=== PATIENT | female | born 1995 | race Caucasian/White ===

== ENCOUNTER 2017-06-17 20:03 | Emergency (ER) | payer OTHER, MEDICAID ==
[~2017-06-17] VITALS: Ht 165.1 cm; Wt 72.1 kg
[~2017-06-17 20:03] MED LIST: FLINTSTONES COM1 CTB PO; IRON; IRON TABLETS325 MG PO; MOTRIN 400MG.400 MG PO; NOMEDS *; PRENATAL PLUS1 TA1 PO
--- OUTSIDE RECORDS SUMMARY | 2017-06-17 20:13 | External Medical Summary Rpt | CCD ---
Author Author , LUIS MIGUEL BOLANOS Address Unknown Phone [email or web address] Purpose Continuity of Care Document - 02-05-2014 through 2016 Problems Code Diagnosis DOS Provider Status O20.0 THREATENED O20.9 HEMORRHAGE IN EARLY , UNSPECIFIED Z33.1 STATE, INCIDENTAL Z34.90 ENCNTR FOR SUPRVSN OF NORMAL , UNSP, UNSP TRIMESTER Results Labs Lab Lab Date Result Refere Interp Status Commen Order Detail nces retati t Range on CHLAMYDIA AND GONORRHEA TESTING (02-05-2014 09:45) It Infrastructure Specialist: Bibi Paul MD FCAP Lab: [facility] Division of Laboratory Services Lab Address: [address] [place] [address], [address] [place] [id number] 02-05-2014 9:45 am Specimen Collection Start Date/Time: Protohistorian: Specimen Luis Alfredo'marylu 02-07-2014 9:16 am Date/Time: Ordering Physician: [facility] 02-08-2014 9:08 am Results Rpt/Status Change Date/Time: This report contains patient information that must be protected in accordance with the Health Insurance Portability and Accountability Act. AMPLIFI NEGATIV complet ED N 014 E ed GONORRH 09:45 OEAE TEST Comment: NEGATIVE RESULT= WITHIN NORMAL LIMITS Comment: POSITIVE RESULT= ABNORMAL Comment: EQUIVOCAL RESULT= INDETERMINATE Comment: UNSATISFACTORY RESULT= INVALID Comment: THE APTIMA COMBO 2 ASSAY IS NOT INTENDED FOR THE EVALUATION OF SUSPECTED Comment: SEXUAL ABUSE OR FOR OTHER MEDICO-LEGAL INDICATIONS. FOR THOSE PATIENTS FOR Comment: WHOM A FALSE POSITIVE RESULT MAY HAVE ADVERSE PSYCHO-SOCIAL IMPACT, THE CDC Comment: RECOMMENDS RETESTING. Comment: \E\.br\E\This report contains patient information that must be protected in accordance with the Health Insurance Portability and Accountability Act. AMPLIFI NEGATIV complet ED 014 E ed CHLAMYD 09:45 IA TEST Comment: NEGATIVE RESULT= WITHIN NORMAL LIMITS Comment: POSITIVE RESULT= ABNORMAL Comment: EQUIVOCAL RESULT= INDETERMINATE Comment: UNSATISFACTORY RESULT= INVALID CHART NA complet NUMBER 014 ed 09:45 PREGNAN 02-05- NO complet T 014 ed 09:45 SPECIME URINE complet N 014 ed SOURCE 09:45 REASON INITIAL complet FOR 014 FAMILY ed REQUEST 09:45 PLANNIN G VISIT SYMPTOM NO complet S 014 ed 09:45 KIT 02-05-2 04-30-14 complet EXPIRAT 014 ed ION 09:45 DATE ETHNICI WHITE, complet TY 014 NON-HIS ed 09:45 PANIC COLLECT PT/ T. complet OR 014 BRANDEN ed 09:45 RN CHLAMYDIA AND GONORRHEA TESTING (02-05-2014 09:45) Chlamyd NEGATIV complet ia 014 E ed trachom 09:45 atis rRNA [Presen ce] in Unspeci fied specime n by Probe & target amplifi cation method Neisser NEGATIV complet ia 014 E ed gonorrh 09:45 oeae rRNA [Presen ce] in Unspeci fied specime n by Probe & target amplifi cation method CHLAMYDIA AND GONORRHEA TESTING (02-05-2014 09:45) COLLECT PT/ T. complet OR 014 BRANDEN ed 09:45 RN ETHNICI WHITE, complet TY 014 NON-HIS ed 09:45 PANIC KIT 02-05-2 04-30-14 complet EXPIRAT 014 ed ION 09:45 DATE SYMPTOM NO complet S 014 ed 09:45 REASON INITIAL complet FOR 014 FAMILY ed REQUEST 09:45 PLANNIN G VISIT SPECIME URINE complet N 014 ed SOURCE 09:45 PREGNAN 02-05- NO complet T 014 ed 09:45 CHART NA complet NUMBER 014 ed 09:45 Chlamyd Pending complet ia 014 ed trachom 09:45 atis rRNA [Presen ce] in Unspeci fied specime n by Probe & target amplifi cation method Neisser Pending complet ia 014 ed gonorrh 09:45 oeae rRNA [Presen ce] in Unspeci fied specime n by Probe & target amplifi cation method
--- OUTSIDE RECORDS SUMMARY | 2017-06-17 20:13 | External Medical Summary Rpt | CCD ---
Author Author [employer] Organization [employer] Address Unknown Phone Unavailable Purpose Continuity of Care Document - through 2016
--- OUTSIDE RECORDS SUMMARY | 2017-06-17 20:13 | External Medical Summary Rpt | CCD ---
Author Author , LUIS MIGUEL ADAMEMARLYS Address Unknown Phone [email or web address] Immunization Name Date Rout CVX Reac Dose Comm Prov Is Faci e tion ent ider Refu lity Give sed n Tdap 05-1 115 999 Hist H149 No H149 , 1-20 oric Adso 07 al rbed Info rmat ion - Sour ce Unsp ecif ied Vari 05-1 21 999 Hist H149 No H149 cell 1-20 oric a 07 al Info rmat ion - Sour ce Unsp ecif ied MMR 03-0 3 999 Hist H149 No H149 1-20 oric 00 al Info rmat ion - Sour ce Unsp ecif ied Olegario 03-0 2 999 Hist H149 No H149 o-OP 1-20 oric V 00 al Info rmat ion - Sour ce Unsp ecif ied DTaP 03-0 107 999 Hist H149 No H149 , UF 1-20 oric 00 al Info rmat ion - Sour ce Unsp ecif ied DTP- 04-2 22 999 Hist H149 No H149 Hib 3-19 oric 97 al Info rmat ion - Sour ce Unsp ecif ied MMR 04-2 3 999 Hist H149 No H149 3-19 oric 97 al Info rmat ion - Sour ce Unsp ecif ied Hep 02-0 8 999 Hist H149 No H149 B, 3-19 oric ped/ 97 al adol Info rmat ion - Sour ce Unsp ecif ied DTP- 02-0 22 999 Hist H149 No H149 Hib 3-19 oric 97 al Info rmat ion - Sour ce Unsp ecif ied Olegario 02-0 2 999 Hist H149 No H149 o-OP 3-19 oric V 97 al Info rmat ion - Sour ce Unsp ecif ied DTP- 07-2 22 999 Hist H149 No H149 Hib 5-19 oric 96 al Info rmat ion - Sour ce Unsp ecif ied Olegario 07-2 2 999 Hist H149 No H149 o-OP 5-19 oric V 96 al Info rmat ion - Sour ce Unsp ecif ied Hep - 45 999 Hist H149 No H149 B, 2-19 oric UF 96 al Info rmat ion - Sour ce Unsp ecif ied DTP- 01-2 22 999 Hist H149 No H149 Hib 2-19 oric 96 al Info rmat ion - Sour ce Unsp ecif ied Olegario 01-2 2 999 Hist H149 No H149 o-OP 2-19 oric V 96 al Info rmat ion - Sour ce Unsp ecif ied
--- OUTSIDE RECORDS SUMMARY | 2017-06-17 20:13 | External Medical Summary Rpt | CCD ---
Author Author , LUIS MIGUEL BOLANOS Address Unknown Phone [email or web address] Purpose Continuity of Care Document - 02-05-2014 through 2016 Problems Code Diagnosis DOS Provider Status O20.0 THREATENED O20.9 HEMORRHAGE IN EARLY , UNSPECIFIED Z33.1 STATE, INCIDENTAL Z34.90 ENCNTR FOR SUPRVSN OF NORMAL , UNSP, UNSP TRIMESTER Results Labs Lab Lab Date Result Refere Interp Status Commen Order Detail nces retati t Range on CHLAMYDIA AND GONORRHEA TESTING (02-05-2014 09:45) Pencils Washer: Bibi Paul MD FCAP Lab: [facility] Division of Laboratory Services Lab Address: [address] [place] [address], [address] [place] [id number] 02-05-2014 9:45 am Specimen Collection Start Date/Time: Head Of Marketing Analytics: Specimen Luis Alfredo'marylu 02-07-2014 9:16 am Date/Time: Ordering Physician: [facility] 02-08-2014 9:08 am Results Rpt/Status Change Date/Time: [...]
--- OUTSIDE RECORDS SUMMARY | 2017-06-17 20:13 | External Medical Summary Rpt | CCD ---
Author Author , LUIS MIGUEL ADAMEMARLYS Address Unknown Phone [email or web address] Immunization Name Date Rout CVX Reac Dose [...]
--- OUTSIDE RECORDS SUMMARY | 2017-06-17 20:14 | External Medical Summary Rpt ---
Author Author LUIS MIGUEL Asael, LUIS MIGUEL [employer] Address Unknown Phone Unavailable Results Basic metabolic panel in Blood Observa Value Referen Units Interpr Notes Date tion ce etation Range Urea 7 - 18 mg/dL Normal No Jan 25 nitrogen informati 2016 4:07 [Mass/vol on in PM ume] in source Serum or data Plasma Calcium 8.5 - mg/dL Normal No Jan 25 [Mass/vol 10.1 informati 2016 4:07 ume] in on in PM Serum or source Plasma data Chloride 98 - 107 mmoL/L Normal No Jan 25 [Moles/vo informati 2016 4:07 lume] in on in PM Serum or source Plasma data Carbon 21.0 - mmoL/L Normal No Jan 25 dioxide, 32.0 informati 2016 4:07 total on in PM [Moles/vo source lume] in data Serum or Plasma Creatinin 0.55 - mg/dL Normal No Jan 25 e 1.02 informati 2016 4:07 [Mass/vol on in PM ume] in source Serum or data Plasma Estimated 59- ML/MIN No REFERENCE Jan 25 informati RANGE: 2017 4:07 glomerula on in >60 PM r source ML/MIN/1. filtratio data 73 SQUARE n rate METERSIf (GF this patient is -A merican, then multiply theresult by 1.210. Glucose 74 - 106 mg/dL Normal No Jan 25 [Mass/vol informati 2016 4:07 ume] in on in PM Serum or source Plasma data Potassium 3.5 - 5.1 mmoL/L Normal No Jan 25 informati 2016 4:07 [Moles/vo on in PM lume] in source Serum or data Plasma Sodium 136 - 145 mmoL/L Normal No Jan 25 [Moles/vo informati 2016 4:07 lume] in on in PM Serum or source Plasma data Choriogonadotropin [Units/volume] in Serum or Plasma Observa Value Referen Units Interpr Notes Date tion ce etation Range Choriogon NEG No No No Jan 25 adotropin informati informati informati 2016 4:07 on in on in on in PM [Units/vo source source source lume] in data data data Serum or Plasma CBC W Auto Differential panel in Blood Observa Value Referen Units Interpr Notes Date tion ce etation Range Basophils 0 - 0.2 K/MM3 Normal No Jan 25 informati 2016 4:07 [#/volume on in PM ] in source Blood by data Automated count Basophils 0.1 - 2.0 % Normal No Jan 25 /100 informati 2017 4:07 leukocyte on in PM s in source Blood by data Automated count Eosinophi 0.0 - 0.4 K/mm3 Normal No Jan 25 ls informati 2016 4:07 [#/volume on in PM ] in source Blood by data Automated count Eosinophi 0.1 - % Normal No Jan 25 ls/100 12.0 informati 2016 4:07 leukocyte on in PM s in source Blood by data Automated count Granulocy 1.8 - 7.8 K/mm3 Normal No Jan 25 sergo informati 2016 4:07 [#/volume on in PM ] in source Blood by data Automated count Granulocy 37.0 - % Normal No Jan 25 sergo/100 80.0 informati 2016 4:07 leukocyte on in PM s in source Blood by data Automated count Hematocri 37.0 - % Low No Jan 25 t [Volume 47.0 informati 2016 4:07 on in PM Fraction] source of Blood data Hemoglobi 12.2 - g/dL Low No Jan 25 n 16.2 informati 2016 4:07 [Mass/vol on in PM ume] in source Blood data Lymphocyt 0.7 - 4.5 K/mm3 Normal No Jan 25 es informati 2016 4:07 [#/volume on in PM ] in source Unspecifi data ed specimen by Automated count Lymphocyt 10 - 50.0 % Normal No Jan 25 es informati 2016 4:07 [#/volume on in PM ] in source Unspecifi data ed specimen by Automated count Erythrocy 27 - 31.2 pg Low No Jan 25 te mean informati 2016 4:07 corpuscul on in PM ar source hemoglobi data n [Entitic mass] Erythrocy 31.8 - g/dl Low Jan 25 te mean 35.4 informati 2016 4:07 corpuscul on in PM ar source hemoglobi data n concentra tion [Mass/vol ume] by Automated count Erythrocy 82.2 - fl Normal No Jan 25 te mean 97.8 informati 2016 4:07 corpuscul on in PM ar volume source [Entitic data volume] by Automated count Monocytes 0.1 - 1.0 K/mm3 Normal No Jan 25 informati 2016 4:07 [#/volume on in PM ] in source Blood by data Automated count Monocytes 1.7 - 9.3 % Normal No Jan 25 /100 informati 2016 4:07 leukocyte on in PM s in source Blood by data Automated count Platelet 7.4 - fl Normal No Jan 25 mean 10.4 informati 2016 4:07 volume on in PM [Entitic source volume] data in Blood by Automated count Platelets 142 - 424 K/mm3 Normal No Jan 25 informati 2016 4:07 [#/volume on in PM ] in source Blood data Erythrocy 4.2 - 5.4 M/mm3 Normal No Jan 25 sergo informati 2016 4:07 [#/volume on in PM ] in source Amniotic data fluid Erythrocy 11.5 - % High Jan 25 te 17.5 informati 2016 4:07 distribut on in PM ion width source [Entitic data volume] by Automated count Leukocyte 4.8 - K/MM3 Normal No Jan 25 s 10.8 informati 2016 4:07 [#/volume on in PM ] in source Blood data CHLAMYDIA AND GONORRHEA TESTING Observa Value Referen Units Interpr Notes Date tion ce etation Range COLLECT PT/ T. No No No No Feb 05 OR BRANDEN informa informa informa informa 2014 RN tion in tion in tion in tion in 9:45 AM source source source source data data data data ETHNICI WHITE, No No No No Feb 05 TY NON-HIS informa informa informa informa 2014 PANIC tion in tion in tion in tion in 9:45 AM source source source source data data data data KIT 9--14 No No No No Feb 05 EXPIRAT informa informa informa informa 2014 ION tion in tion in tion in tion in 9:45 AM DATE source source source source data data data data SYMPTOM NO No No No No Feb 05 S informa informa informa informa 2014 tion in tion in tion in tion in 9:45 AM source source source source data data data data REASON INITIAL No No No No Feb 05 FOR FAMILY informa informa informa informa 2013 REQUEST tion in tion in tion in tion in 9:45 AM PLANNIN source source source source G VISIT data data data data SPECIME URINE No No No No Feb 05 N informa informa informa informa 2014 SOURCE tion in tion in tion in tion in 9:45 AM source source source source data data data data PREGNAN NO No No No No Feb 05 T informa informa informa informa 2014 tion in tion in tion in tion in 9:45 AM source source source source data data data data CHART NA No No No No Feb 05 NUMBER informa informa informa informa 2014 tion in tion in tion in tion in 9:45 AM source source source source data data data data Chlamyd NEGATIV No No No NEGATIV Feb 05 ia E informa informa informa E 2014 trachom tion in tion in tion in RESULT= 9:45 AM atis source source source WITHIN rRNA data data data NORMAL [Presen ce] in LIMITSP Unspeci OSITIVE fied specime RESULT= n by Probe & ABNORMA target LEQUIVO ISAC amplifi RESULT= cation method INDETER MINATEU NSATISF ACTORY RESULT= INVALID Neisser NEGATIV No No No NEGATIV Feb 05 ia E informa informa informa E 2014 gonorrh tion in tion in tion in RESULT= 9:45 AM oeae source source source WITHIN rRNA data data data NORMAL [Presen ce] in LIMITSP Unspeci OSITIVE fied specime RESULT= n by Probe & ABNORMA target LEQUIVO ISAC amplifi RESULT= cation method INDETER MINATEU NSATISF ACTORY RESULT= INVALID THE APTIMA COMBO 2 ASSAY IS NOT INTENDE D FOR THE EVALUAT ION OF SUSPECT EDSEXUA L ABUSE OR FOR OTHER MEDICO- LEGAL INDICAT IONS. FOR THOSE PATIENT S FORWHOM A FALSE POSITIV E RESULT MAY HAVE ADVERSE PSYCHO- SOCIAL IMPACT, THE CDCRECO MMENDS RETESTI NG.\.br \This report contain s patient informa tion that must be protect ed in accorda nce with the Health Insuran ce Portabi lity and Account ability Act. CHLAMYDIA AND GONORRHEA TESTING Observa Value Referen Units Interpr Notes Date tion ce etation Range COLLECT PT/ T. No No No No Jan 8 OR BRANDEN informa informa informa informa 2014 RN tion in tion in tion in tion in 9:45 AM source source source source data data data data ETHNICI WHITE, No No No No Feb 05 TY NON-HIS informa informa informa informa 2014 PANIC tion in tion in tion in tion in 9:45 AM source source source source data data data data KIT 04-30- No No No No Feb 05 EXPIRAT informa informa informa informa 2014 ION tion in tion in tion in tion in 9:45 AM DATE source source source source data data data data SYMPTOM NO No No No No Feb 05 S informa informa informa informa 2014 tion in tion in tion in tion in 9:45 AM source source source source data data data data REASON INITIAL No No No No Feb 05 FOR FAMILY informa informa informa informa 2014 REQUEST tion in tion in tion in tion in 9:45 AM PLANNIN source source source source G VISIT data data data data SPECIME URINE No No No No Feb 05 N informa informa informa informa 2014 SOURCE tion in tion in tion in tion in 9:45 AM source source source source data data data data PREGNAN NO No No No No Feb 05 T informa informa informa informa 2014 tion in tion in tion in tion in 9:45 AM source source source source data data data data CHART NA No No No No Feb 05 NUMBER informa informa informa informa 2014 tion in tion in tion in tion in 9:45 AM source source source source data data data data Chlamyd Pending No No No No Feb 05 ia informa informa informa informa 2014 trachom tion in tion in tion in tion in 9:45 AM atis source source source source rRNA data data data data [Presen ce] in Unspeci fied specime n by Probe & target amplifi cation method Neisser Pending No No No \.br\Th Feb 05 ia informa informa informa is 2014 gonorrh tion in tion in tion in report 9:45 AM oeae source source source contain rRNA data data data s [Presen patient ce] in Unspeci informa fied tion specime that n by must be Probe & target protect ed in amplifi accorda cation nce method with the Health Insuran ce Portabi lity and Account ability Act.
--- OUTSIDE RECORDS SUMMARY | 2017-06-17 20:14 | External Medical Summary Rpt ---
Author Author LUIS MIGUEL Asael, LUIS MIGUEL [employer] Organization [employer] Address Unknown Phone [...]
--- NOTE | 2017-06-17 20:37 | Urgent Treatment Center Report ---
History of Present Issue Date/Time Seen by Provider 06/17/172027 Visit Reason Pt arrived:Walked Presenting Problem:PT C/O SORE THROAT, BILATERAL EAR PAIN, HEAD CONGESTION, BODY ACHE. Location if Accident: Onset of symptoms date/time:/ or onset unknown for:MEDICAL HX UNKNOWN Have you (or family members/close friends) recently traveled outside the [place]? N If Yes, where/when: Have you had exposure to infectious disease within the past month? TB? Other? Specify: Patient state that she has not been feeling well for several days State that she has been having sore throat, pain in both ears, head congestion and body aches States that she has continued to get worse. State that she is having pain with swallowing and hurts when she coughs ALLERGIES Coded Allergies: latex ([id number] 01/26/17) History Medical History General CAD? No Angina: No TN: No Hypertension? No Hyperlipidemia? No CHF? No DVT? No PE? No COPD? No Asthma? No Anemia? No GERD? No Gastric ulcers? No GI Bleed? No Hernia? No Thyroid Problems? No Hypothyroidism? No CVA? No Seizures? No Diabetes? No Insulin Dependent: No Insulin Pump: No Home FSBS? No Renal Insuffiency? No UTI? No Stones? No BPH? No GB Disease: No Nephritic Syndrome? No Asplenia? No Hepatitis? No Sickle Cell Disease? No Arthritis? No Migraines? No Cataracts? No Glaucoma? No MRSA? No HIV? No TB? No Anxiety? No Depression? No Cancer? No More? No Immunization HX DT/Tetanus 1-4 YRS Flu Refused Pneumonia Refuses Surgical Hx Previous Surgery?Y CYST REMOVED FROM [facility] [employer] [facility] Hx LMP 1 Month Ago Social History Smoking Hx Smoker: Never Smoker Tobacco: No Packs/day 1 1/2 - 2 Packs Alcohol Alcohol: No Review of Systems All Other Systems Reviewed and Negative ENT ear pain, throat pain, throat swelling. Respiratory cough, denies shortness of breath, denies wheezing Musculoskeletal other (body aches) Physical Exam Vital Signs Vital Signs Date Time Temp Pulse Resp B/P Pulse O2 O2 Flow FiO2 Ox Delivery Rate 06/17 2015 98.5 98 18 123/65 97 General Appearance normal appearance, WD/WN, no apparent distress Ear, Nose, Throat tonsillar exudate, tonsillar swelling, Throat swollen, red, drainage noted Respiratory Status Yes: trachea midline, chest symmetrical, non tender chest. No: respiratory distress. Lung Sounds bilateral: normal breath sounds, lungs clear. Cardiovascular normal exam, regular rate/rhythm, no peripheral edema Neurologic alert, normal exam, oriented x 3 Medical Decision Making LABS/Meds/Orders Pt receiving controlled substance in ED? No Results/Orders Laboratory Tests 06/17/172036: Group A Strep Screen DETECTED Current Medication Orders Sig/Mona Start time Last Medication Dose Route Stop Time Status Admin Penicillin G 0 .STK-MED ONE 06/17 2046 DC Benzathine IM Penicillin G 1,200,000 UNITS ONCE ONE 06/17 2045 DC 06/17 Benzathine IM 06/17 Orders Procedure Date/time Status [facility] STREP SCREEN 06/17 2037 Complete Departure Departure Time of Disposition 2053 Disposition DC Home or Self Care(routine) Clinical Impression Primary Impression: Strep throat Condition STABLE Patient Instructions Cough, DI for Ear Pain-Adult, Sore Throat Additional Instructions * Monitor Temp. Tylenol and/or Ibuprofen as needed. ER if fever is no less than 101 despite alternating Tylenol and Ibuprofen * Encourage fluids, water, Gatorade, powerade, pedialyte if infant/toddler/or child * Warm salt water gargles for throat irritation *Warm fluids *Sore throat lozenges *Sleep elevated *humidifier or vaporizer Lots of rest Increase fluids, water, Gatorade, powerade *Flonase 2 sprays each nostril daily but may take 2-3 days to notice improvement with it *Bromfed may cause drowsiness. Know how it effect you or your child. Before driving, caring for small children or sending your child to school *Your throat swab was sent to lab for culture. Those results area typically sent to your primary care physician. Be sure to follow up in 2-3 days if no improvement so they can review those results and treat if necessary If you dont have primary care I recommend you get one, but in the mean time you will have to return to a walk in clinic Follow up IMMEDIATELY for new or worsening of symptoms OR no noticeable improvement over the next 48-72 hours. 911 immediately for any life threatening symptoms such as chest pain or difficulty breathing Discharge Counseling Counseled pt/family regarding diagnosis, test results, medications/RX, home care, follow up needs Electronically Signed by JUANITA BENITEZ APRN 06/17/17 at 2056
--- NOTE | 2017-06-17 20:37 | [facility] Report ---
History of Present Issue Date/Time Seen by Provider 06/17/172027 Visit Reason Pt arrived:Walked Presenting Problem:PT C/O SORE THROAT, BILATERAL EAR PAIN, HEAD CONGESTION, BODY ACHE. Location if Accident: Onset of symptoms date/time:/ or onset unknown for:MEDICAL HX UNKNOWN Have you (or family members/close friends) recently traveled outside the [place]? N If Yes, where/when: Have you had exposure to infectious disease within the past month? TB? Other? Specify: Patient state that she has not been feeling well for several days State that she has been having sore throat, pain in both ears, head congestion and body aches States that she has continued to get worse. State that she is having pain with swallowing and hurts when she coughs ALLERGIES Coded Allergies: latex ([id number] 01/26/17) History Medical History General CAD? No Angina: No DE: No Hypertension? No Hyperlipidemia? No CHF? No DVT? No PE? No COPD? No Asthma? No Anemia? No GERD? No Gastric ulcers? No GI Bleed? No Hernia? No Thyroid Problems? No Hypothyroidism? No CVA? No Seizures? No Diabetes? No Insulin Dependent: No Insulin Pump: No Home FSBS? No Renal Insuffiency? No UTI? No Stones? No BPH? No GB Disease: No Nephritic Syndrome? No Asplenia? No Hepatitis? No Sickle Cell Disease? No Arthritis? No Migraines? No Cataracts? No Glaucoma? No MRSA? No HIV? No TB? No Anxiety? No Depression? No Cancer? No More? No Immunization HX DT/Tetanus 1-4 YRS Flu Refused Pneumonia Refuses Surgical Hx Previous Surgery?Y CYST REMOVED FROM [employer]ECK [employer] Hx LMP 1 Month Ago Social History Smoking Hx Smoker: Never Smoker Tobacco: No Packs/day 1 1/2 - 2 Packs Alcohol Alcohol: No Review of Systems All Other Systems Reviewed and Negative ENT ear pain, throat pain, throat swelling. Respiratory cough, denies shortness of breath, denies wheezing Musculoskeletal other (body aches) Physical Exam Vital Signs Vital Signs Date Time Temp Pulse Resp B/P Pulse O2 O2 Flow FiO2 Ox Delivery Rate 06/17 2015 98.5 98 18 123/65 97 General Appearance normal appearance, WD/WN, no apparent distress Ear, Nose, Throat tonsillar exudate, tonsillar swelling, Throat swollen, red, drainage noted Respiratory Status Yes: trachea midline, chest symmetrical, non tender chest. No: respiratory distress. Lung Sounds bilateral: normal breath sounds, lungs clear. Cardiovascular normal exam, regular rate/rhythm, no peripheral edema Neurologic alert, normal exam, oriented x 3 Medical Decision Making LABS/Meds/Orders Pt receiving controlled substance in ED? No Results/Orders Laboratory Tests 06/17/172036: Group A Strep Screen DETECTED Current Medication Orders Sig/Mona Start time Last Medication Dose Route Stop Time Status Admin Penicillin G 0 .STK-MED ONE 06/17 2046 DC Benzathine IM Penicillin G 1,200,000 UNITS ONCE ONE 06/17 2045 DC 06/17 Benzathine IM 06/17 Orders Procedure Date/time Status [facility] STREP SCREEN 06/17 2037 Complete Departure Departure Time of Disposition 2053 Disposition DC Home or Self Care(routine) Clinical Impression Primary Impression: Strep throat Condition STABLE Patient Instructions Cough, DI for Ear Pain-Adult, Sore Throat Additional Instructions * Monitor Temp. Tylenol and/or Ibuprofen as needed. ER if fever is no less than 101 despite alternating Tylenol and Ibuprofen * Encourage fluids, water, Gatorade, powerade, pedialyte if infant/toddler/or child * Warm salt water gargles for throat irritation *Warm fluids *Sore throat lozenges *Sleep elevated *humidifier or vaporizer Lots of rest Increase fluids, water, Gatorade, powerade *Flonase 2 sprays each nostril daily but may take 2-3 days to notice improvement with it *Bromfed may cause drowsiness. Know how it effect you or your child. Before driving, caring for small children or sending your child to school *Your throat swab was sent to lab for culture. Those results area typically sent to your primary care physician. Be sure to follow up in 2-3 days if no improvement so they can review those results and treat if necessary If you dont have primary care I recommend you get one, but in the mean time you will have to return to a walk in clinic Follow up IMMEDIATELY for new or worsening of symptoms OR no noticeable improvement over the next 48-72 hours. 911 immediately for any life threatening symptoms such as chest pain or difficulty breathing Discharge Counseling Counseled pt/family regarding diagnosis, test results, medications/RX, home care, follow up needs Electronically Signed by JUANITA BENITEZ APRN 06/17/17 at 2053
[2017-06-17 21:00] VITALS: BP 123/65
== END 2017-06-17 21:00 | disposition home or self-care (01) ==
LOC: UTC 20:03
DX: J02.0 Streptococcal pharyngitis (principal); Z91.040 Latex allergy status